=== PATIENT | female | born 1995 | race Caucasian/White ===

== ENCOUNTER 2018-02-05 22:22 | Emergency (ER) | payer OTHER ==
[~2018-02-05] VITALS: Ht 165.1 cm; Wt 86.4 kg
[2018-02-05] MEDS ORDERED: METF500T6 PO (22:27)
[2018-02-05] MEDS ORDERED: LIDOCAINE HCL 2%/EPI 1:200,000/PF 20 ML VIAL INJ ONE (23:00)
[2018-02-06] MEDS ORDERED: IBUPROFEN 800 MG TABLET PO ONE (00:15)
[2018-02-06] MEDS ORDERED: CEPHALEXIN MONOHYDRATE 500 MG CAPSULE PO ONE (00:15)
[2018-02-06] MEDS ORDERED: HYDROCODONE/ACETAMINOPHEN 5-325 MG TABLET PO ONE (00:15)
[2018-02-06 00:31] VITALS: BP 122/74
== END 2018-02-06 00:53 | disposition home or self-care (01) ==
LOC: EMS 22:24
DX: S91.311A Laceration without foreign body, right foot, initial encounter (principal); F12.10 Cannabis abuse, uncomplicated; Z79.899 Other long term (current) drug therapy; W45.8XXA Other foreign body or object entering through skin, initial encounter; Y93.89 Activity, other specified; Y92.89 Other specified places as the place of occurrence of the external cause; Y99.8 Other external cause status
CPT/HCPCS: 12001; 73630; 99284; X6474

== ENCOUNTER 2018-02-19 10:44 | Emergency (ER) | payer OTHER ==
[~2018-02-19] VITALS: Ht 165.1 cm; Wt 86.4 kg
[~2018-02-19 10:44] MED LIST: METF500T6 PO
[2018-02-19 11:08] LABS: GLUCOSE,POINT OF CARE 162 MG/DL (70-110)
[2018-02-19 12:11] VITALS: BP 124/75
[2018-02-19] MEDS ORDERED: IBUPROFEN 600 MG TABLET PO ONE (12:15)
== END 2018-02-19 13:59 | disposition home or self-care (01) ==
LOC: EMS 10:44
DX: S91.301D Unspecified open wound, right foot, subsequent encounter (principal); E11.9 Type 2 diabetes mellitus without complications; F12.90 Cannabis use, unspecified, uncomplicated; X58.XXXD Exposure to other specified factors, subsequent encounter
CPT/HCPCS: 99284